=== PATIENT | male | born 1945 | race Caucasian/White ===

== ENCOUNTER 2017-07-27 19:21 | Observation (INO) | payer MEDICARE ==
[~2017-07-27] VITALS: Ht 193 cm; Wt 95.0 kg
[2017-07-27] MEDS ORDERED: ONDANSETRON HCL MDV 20ML 2 MG/ML VIAL ONE (19:28)
[2017-07-27] MEDS ORDERED: FENTANYL CITRATE PF 50 MCG/1 ML 2ML VIAL ONE ×3 (19:30→20:22)
[2017-07-27 19:43] LABS: BASOPHILS % (AUTO) 0.7 % (0.0-5.0); HEMATOCRIT 40.8 % (42-54); LYMPHOCYTES % (AUTO) 25.4 % (21.0-51.0); MEAN CORPUSCULAR HEMOGLOBIN 36.1 pg (27.0-33.0); MEAN CORPUSCULAR HGB CONC 34.4 g/dL (32.0-36.0); MEAN CORPUSCULAR VOLUME 104.9 fL (79-99); MONOCYTES % (AUTO) 6.6 % (3.0-13.0); NEUTROPHILS % (AUTO) 66.3 % (40.0-77.0); PLATELET COUNT (AUTO) 269 K/uL (130-400); RED BLOOD CELL COUNT(AUTO) 3.89 MIL/uL (4.50-6.20); RED CELL DISTRIBUTION WIDTH 13.7 % (11.0-15.5); WHITE BLOOD COUNT (AUTO) 6.7 K/uL (4.8-10.8)
[2017-07-27 20:01] LABS: CREATININE 1.2 mg/dL (0.5-1.5); POTASSIUM 3.7 mmol/L (3.5-5.1)
[2017-07-27 20:12] LABS: APPEARANCE,URINE Clear (CLEAR); BILIRUBIN,URINE Negative (NEGATIVE); COLOR,URINE Yellow (YELLOW); GLUCOSE, URINE (UA) Negative (NEGATIVE); KETONES,URINE Negative (NEGATIVE); LEUKOCYTE ESTERASE ,URINE Negative (NEGATIVE); NITRATE,URINE Negative (NEGATIVE); OCCULT BLOOD,URINE Trace (NEGATIVE); PROTEIN,URINE Negative (NEGATIVE); UROBILINOGEN,URINE 0.2 mg/dL (0.2-1.0)
[2017-07-27 20:19] LABS: BACTERIA,URINE None Seen /HPF (None Seen); SQUAMOUS EPITHELIAL CELL,UR None Seen /HPF (0-2); WBC,URINE None Seen /HPF (0-1)
[2017-07-27 20:36] LABS: ALBUMIN 4.3 g/dL (3.5-5.0); BILIRUBIN,TOTAL 0.2 mg/dL (0.2-1.0); PHENYTOIN (DILANTIN) 10.9 mcg/mL (10.0-20.0); TOTAL PROTEIN, SERUM 7.7 g/dL (6.0-8.3)
[2017-07-27] MEDS ORDERED: KETOROLAC TROMETHAMINE 15MG/ML ONE (20:37)
[2017-07-27] MEDS ORDERED: TAMSULOSIN HCL 0.4 MG CAP.ER.24H ONE (20:37)
[2017-07-27] MEDS ORDERED: SODIUM CHLORIDE 0.9% 1000ML 1,000 ML IV ONE (21:32)
[2017-07-27 21:47] VITALS: BP 154/92
[2017-07-27] MEDS ORDERED: POTASSIUM CHLORIDE 10% ELIXIR 20 MEQ/15 ML UDCUP PO PRN (23:00)
[2017-07-27] MEDS ORDERED: LIDOCAINE HCL-MPF 1% 2ML VIAL IVP PRN (23:00)
[2017-07-27] MEDS ORDERED: POTASSIUM CHLORIDE 20 MEQ ERTAB PO PRN (23:00)
[2017-07-27] MEDS ORDERED: POTASSIUM CHLORIDE 20MEQ/100ML 100 ML IV PRN (23:00)
[2017-07-27] MEDS ORDERED: ACETAMINOPHEN 325 MG TAB PO PRN ×2 (23:00)
[2017-07-27] MEDS ORDERED: CLONIDINE HCL 0.1 MG TABLET PO PRN (23:00)
[2017-07-27] MEDS ORDERED: MORPHINE SULFATE 2 MG/ML 1ML SYG IVP PRN (23:00)
[2017-07-28] VITALS: BP 128/67
[2017-07-28] MEDS ORDERED: HYDROMORPHONE 1 MG/1 ML AMP IVP PRN
[2017-07-28] MEDS ORDERED: KETOROLAC TROMETHAMINE 15MG/ML IV PRN (00:30)
[2017-07-28] MEDS: SODIUM CHLORIDE 0.9% 1000ML 1,000 ML IV SCH ×3 (01:50→23:00)
[2017-07-28 04:00] VITALS: BP 135/72
[2017-07-28 06:47] LABS: HEMATOCRIT 36.5 % (42-54); MEAN CORPUSCULAR HEMOGLOBIN 37.6 pg (27.0-33.0); MEAN CORPUSCULAR HGB CONC 35.6 g/dL (32.0-36.0); MEAN CORPUSCULAR VOLUME 105.7 fL (79-99); PLATELET COUNT (AUTO) 223 K/uL (130-400); RED BLOOD CELL COUNT(AUTO) 3.46 MIL/uL (4.50-6.20); RED CELL DISTRIBUTION WIDTH 13.6 % (11.0-15.5); WHITE BLOOD COUNT (AUTO) 4.7 K/uL (4.8-10.8)
[2017-07-28 07:10] LABS: CREATININE 1.1 mg/dL (0.5-1.5); POTASSIUM 4.2 mmol/L (3.5-5.1)
[2017-07-28 08:07] VITALS: BP 148/75
[2017-07-28] MEDS: FAMOTIDINE 20MG TAB 20 MG TAB PO SCH ×2 (09:00→21:00)
[2017-07-28] MEDS ORDERED: EZET10 PO (09:26)
[2017-07-28] MEDS ORDERED: OMEG1CAP83 PO (09:26)
[2017-07-28] MEDS ORDERED: METO25TA6 PO (09:26)
[2017-07-28] MEDS ORDERED: PANT40TA25 PO (09:26)
[2017-07-28] MEDS ORDERED: LUTE6TAB PO (09:26)
[2017-07-28] MEDS ORDERED: ROSU5TAB PO (09:26)
[2017-07-28] MEDS ORDERED: MULT-685 PO (09:26)
[2017-07-28] MEDS ORDERED: PHEN100C23 PO (09:26)
[2017-07-28] MEDS ORDERED: VITA1CAP PO (09:26)
[2017-07-28] MEDS ORDERED: ASPI-1197 PO (09:26)
[2017-07-28] MEDS ORDERED: MAG HYDROX/AL HYDROX/SIMETH ES 30 ML SUSP UDCUP PO PRN (09:30)
[2017-07-28] MEDS ORDERED: GUAIFENESIN-DM 200/20 MG 10 ML PO PRN (09:30)
[2017-07-28] MEDS ORDERED: HYDRALAZINE HCL 20 MG/ML VIAL IV PRN (09:30)
[2017-07-28] MEDS ORDERED: PHARMACY COMMUNICATION MISC SCH ×2 (09:30)
[2017-07-28] MEDS ORDERED: ACETAMINOPHEN 325 MG TAB PO PRN ×2 (09:30)
[2017-07-28] MEDS ORDERED: LACTULOSE 20 GM/30 ML UDCUP PO PRN (09:30)
[2017-07-28] MEDS ORDERED: NITROGLYCERIN 0.4 MG SL TAB SL PRN (09:30)
[2017-07-28] MEDS ORDERED: ONDANSETRON HCL 4 MG/2 ML VIAL IV PRN (09:30)
[2017-07-28] MEDS: TAMSULOSIN HCL 0.4 MG CAP.ER.24H PO SCH (09:50)
[2017-07-28] MEDS ORDERED: GLUCOSAMINE-CHONDROITIN PO SCH (09:52)
[2017-07-28] MEDS ORDERED: VITAMIN B COMPLEX 1 CAPSULE PO SCH (09:54)
[2017-07-28 11:12] VITALS: BP 141/67
[2017-07-28] MEDS ORDERED: IOPAMIDOL-370 100 ML VIAL IV ONE (12:52)
[2017-07-28 16:07] VITALS: BP 153/62
[2017-07-28 20:00] VITALS: BP 150/76
[2017-07-28] MEDS ORDERED: ATORVASTATIN CALCIUM 10 MG TABLET PO SCH (21:00)
[2017-07-29] VITALS: BP 130/68
[2017-07-29 04:00] VITALS: BP 128/70
[2017-07-29 06:20] LABS: HEMATOCRIT 38.5 % (42-54); MEAN CORPUSCULAR HEMOGLOBIN 36.3 pg (27.0-33.0); MEAN CORPUSCULAR HGB CONC 34.7 g/dL (32.0-36.0); MEAN CORPUSCULAR VOLUME 104.8 fL (79-99); PLATELET COUNT (AUTO) 207 K/uL (130-400); RED BLOOD CELL COUNT(AUTO) 3.67 MIL/uL (4.50-6.20); RED CELL DISTRIBUTION WIDTH 13.5 % (11.0-15.5); WHITE BLOOD COUNT (AUTO) 4.5 K/uL (4.8-10.8)
[2017-07-29 06:32] LABS: CREATININE 0.8 mg/dL (0.5-1.5); POTASSIUM 4.1 mmol/L (3.5-5.1)
[2017-07-29 07:50] VITALS: BP 139/61
[2017-07-29] MEDS ORDERED: PHENYTOIN SODIUM 100 MG ERCAP PO SCH (09:00)
[2017-07-29] MEDS ORDERED: PANTOPRAZOLE SODIUM 40 MG TABLET.DR PO SCH (09:00)
[2017-07-29] MEDS ORDERED: EZETIMIBE 10 MG TAB PO SCH (09:00)
[2017-07-29] MEDS ORDERED: METOPROLOL TARTRATE 25 MG TAB PO SCH (09:00)
[2017-07-29 09:12] VITALS: BP 139/61
[2017-07-29] MEDS: TAMSULOSIN HCL 0.4 MG CAP.ER.24H PO SCH (09:20)
[2017-07-29] MEDS: FAMOTIDINE 20MG TAB 20 MG TAB PO SCH (09:20)
[2017-07-29 11:11] VITALS: BP 141/73
[2017-09-13] MEDS ORDERED: GLUC1CAP14 PO (16:22)
[2017-09-13] MEDS ORDERED: VITAMIN B12 PO (16:22)
== END 2017-07-29 14:28 | disposition home or self-care (01) ==
LOC: EDH 19:21 → EDHIP 21:04 → 3CH 22:05
PROVIDERS: ADMIT Internal Medicine; ATTEND Internal Medicine
DX: N20.2 Calculus of kidney with calculus of ureter (principal); G40.909 Epilepsy, unspecified, not intractable, without status epilepticus; E78.5 Hyperlipidemia, unspecified; I10 Essential (primary) hypertension; I25.10 Atherosclerotic heart disease of native coronary artery without angina pectoris; K22.70 Barrett's esophagus without dysplasia; K29.70 Gastritis, unspecified, without bleeding; F10.20 Alcohol dependence, uncomplicated; Z87.891 Personal history of nicotine dependence; Z95.5 Presence of coronary angioplasty implant and graft; Z98.49 Cataract extraction status, unspecified eye; Z79.82 Long term (current) use of aspirin
CPT/HCPCS: 36415 ×3; 74176; 74400; 80048 ×2; 80053; 80185; 81001; 82550; 82553; 83690; 84484; 85025; 85027 ×2; 93005; 96360; 96361 ×2; 99285; G0378 ×41; J1170; J1885; J3010 ×3; J7030; Q9967

== ENCOUNTER 2017-09-14 07:41 | Day surgery (SDC) | payer MEDICARE ==
[2017-09-13 15:34] LABS: BASOPHILS % (AUTO) 0.5 % (0.0-5.0); HEMATOCRIT 39.6 % (42-54); LYMPHOCYTES % (AUTO) 23.3 % (21.0-51.0); MEAN CORPUSCULAR HEMOGLOBIN 36.4 pg (27.0-33.0); MEAN CORPUSCULAR HGB CONC 34.5 g/dL (32.0-36.0); MEAN CORPUSCULAR VOLUME 105.2 fL (79-99); MONOCYTES % (AUTO) 8.6 % (3.0-13.0); NEUTROPHILS % (AUTO) 64.6 % (40.0-77.0); NUCLEATED RED BLOOD CELLS 0.1 % (0.0-0.19); PLATELET COUNT (AUTO) 234 K/uL (130-400); RED BLOOD CELL COUNT(AUTO) 3.76 MIL/uL (4.50-6.20); RED CELL DISTRIBUTION WIDTH 13.4 % (11.0-15.5); WHITE BLOOD COUNT (AUTO) 5.2 K/uL (4.8-10.8)
[2017-09-13 15:41] LABS: CREATININE 0.9 mg/dL (0.5-1.5); POTASSIUM 4.2 mmol/L (3.5-5.1)
[2017-09-13 16:03] VITALS: BP 134/68
[~2017-09-14] VITALS: Ht 185.4 cm; Wt 93.8 kg
[2017-09-14] VITALS (12 sets, daily range): BP systolic 130–184; BP diastolic 52–92
[2017-09-14] MEDS: CEFTRIAXONE SODIUM 1 GM IVP SCH ×2 (06:00→10:00)
[~2017-09-14 07:41] MED LIST: ASPI-1197 PO; EZET10 PO; GLUC1CAP14 PO; LUTE6TAB PO; METO25TA6 PO; MULT-685 PO; OMEG1CAP83 PO; PANT40TA25 PO; PHEN100C23 PO; ROSU5TAB PO; VITAMIN B12 PO
[2017-09-14] MEDS ORDERED: LACTATED RINGERS 1000ML 1,000 ML IV ONE (08:22)
[2017-09-14] MEDS ORDERED: ISOVUE-370 50ML VIAL IV ONE (09:22)
[2017-09-14] MEDS ORDERED: PROPOFOL 10 MG/ML 20ML VIAL IV ONE (09:43)
[2017-09-14] MEDS ORDERED: FENTANYL CITRATE PF 50 MCG/1 ML 2ML VIAL ONE (09:43)
[2017-09-14] MEDS ORDERED: MIDAZOLAM HCL 1 MG/ML 2ML VIAL ONE (10:01)
[2017-09-14] MEDS ORDERED: MORPHINE SULFATE 2 MG/ML 1ML SYG ONE (10:41)
[2017-09-14] MEDS ORDERED: PHENAZOPYRIDINE HCL 200 MG TABLET ONE (11:53)
== END 2017-09-14 12:40 | disposition home or self-care (01) ==
LOC: DAH 07:41
PROVIDERS: ATTEND Urology
DX: N13.2 Hydronephrosis with renal and ureteral calculous obstruction (principal); N40.0 Benign prostatic hyperplasia without lower urinary tract symptoms; N32.89 Other specified disorders of bladder; Z79.899 Other long term (current) drug therapy; I10 Essential (primary) hypertension; K21.9 Gastro-esophageal reflux disease without esophagitis; R56.9 Unspecified convulsions; Z95.5 Presence of coronary angioplasty implant and graft; Z98.890 Other specified postprocedural states; Z98.41 Cataract extraction status, right eye; Z98.42 Cataract extraction status, left eye; M19.90 Unspecified osteoarthritis, unspecified site
CPT/HCPCS: 36415; 52005; 74420; 80048; 85025; 93005; A4218; A4344; A4358; A4510; A4600; C1758; C1769; J0696; J2250; J2704; J3010; J7120 ×2; Q9967

== ENCOUNTER 2022-04-12 16:05 | Emergency (ER) | payer MEDICARE ==
[~2022-04-12] VITALS: Ht 193 cm; Wt 94.3 kg
[~2022-04-12 16:05] MED LIST changes: -EZET10 PO; +EZET10TA13 PO; -PANT40TA25 PO; +PANT40TA55 PO
[2022-04-12 16:22] VITALS: BP 122/62
[2022-04-12 16:48] LABS: BASOPHILS % (AUTO) 0.7 % (0.0-5.0); EOSINOPHILS % (AUTO) 0.7 % (0.0-8.0); HEMATOCRIT 38.7 % (42-54); LYMPHOCYTES % (AUTO) 11.6 % (21.0-51.0); MEAN CORPUSCULAR HEMOGLOBIN 35.2 pg (27.0-33.0); MEAN CORPUSCULAR HGB CONC 33.9 g/dL (32.0-36.0); MONOCYTES % (AUTO) 11.9 % (3.0-13.0); NEUTROPHILS % (AUTO) 74.8 % (40.0-77.0); PLATELET COUNT (AUTO) 162 K/uL (130-400); RED BLOOD CELL COUNT(AUTO) 3.72 MIL/uL (4.50-6.20); RED CELL DISTRIBUTION WIDTH 12.7 % (11.0-15.5); WHITE BLOOD COUNT (AUTO) 7.2 K/uL (4.8-10.8)
[2022-04-12 16:57] LABS: CREATININE 1.1 mg/dL (0.5-1.5); POTASSIUM 3.6 mmol/L (3.5-5.1)
[2022-04-12 17:04] LABS: MAGNESIUM 2.1 mg/dL (1.80-2.40); TOTAL PROTEIN, SERUM 7.2 g/dL (6.0-8.3)
[2022-04-12] MEDS ORDERED: NIRM1TAB5 PO (18:05)
== END 2022-04-12 18:27 | disposition home or self-care (01) ==
LOC: EDH 16:05
DX: U07.1 COVID-19 (principal); I10 Essential (primary) hypertension; Z79.899 Other long term (current) drug therapy; Z88.8 Allergy status to other drugs, medicaments and biological substances; Z79.82 Long term (current) use of aspirin
CPT/HCPCS: 99285; 71045; 87635; 83735; 84484; 80053; 83880; 85025; 87804 ×2; 36415; 93005; C9803

== ENCOUNTER 2023-09-30 07:06 | Observation (INO) | payer MEDICARE ==
[2023-09-30] VITALS (11 sets, daily range): BP systolic 127–153; BP diastolic 66–82; PULSE 75–94; RESP 18–20; O2SAT 93–96
[~2023-09-30] VITALS: Ht 193 cm; Wt 90.7 kg
[~2023-09-30 07:06] MED LIST changes: -EZET10TA13 PO; +EZET10TA81 PO; +NIRM1TAB5 PO
[2023-09-30 07:43] LABS: BASOPHILS # (AUTO) 0.02 K/uL (0.00-0.20); BASOPHILS % (AUTO) 0.3 % (0.0-5.0); EOSINOPHILS # (AUTO) 0.01 K/uL (0.00-0.70); EOSINOPHILS % (AUTO) 0.1 % (0.0-8.0); IMMATURE GRANULOCYTE ABSOLUTE 0.03 K/uL (0-1); LYMPHOCYTES # (AUTO) 0.7 K/uL (1.0-4.8); LYMPHOCYTES % (AUTO) 9.4 % (21.0-51.0); MEAN CORPUSCULAR HEMOGLOBIN 35.6 pg (27.0-33.0); MEAN CORPUSCULAR HGB CONC 34.3 g/dL (32.0-36.0); MEAN CORPUSCULAR VOLUME 103.8 fL (79-99); MONOCYTES # (AUTO) 0.6 K/uL (0.1-1.0); MONOCYTES % (AUTO) 7.1 % (3.0-13.0); NEUTROPHILS # (AUTO) 6.5 K/uL (1.8-7.7); NEUTROPHILS % (AUTO) 82.7 % (40.0-77.0); PLATELET COUNT (AUTO) 326 K/uL (130-400); RED BLOOD CELL COUNT(AUTO) 4.24 MIL/uL (4.50-6.20); RED CELL DISTRIBUTION WIDTH 12.2 % (11.0-15.5); WHITE BLOOD COUNT (AUTO) 7.8 K/uL (4.8-10.8)
[2023-09-30 07:44] LABS: INFLUENZA TYPE A Negative For Type A (NEGATIVE); INFLUENZA TYPE B Negative For Type B (NEGATIVE)
[2023-09-30 07:47] LABS: CREATININE 0.9 mg/dL (0.5-1.3); POTASSIUM 4.1 mmol/L (3.5-5.1)
[2023-09-30 08:02] LABS: SARS-CoV-2, RNA, NAAT NEGATIVE SARS CoV-2 (NEGATIVE)
[2023-09-30 08:42] LABS: B-TYPE NATRIURETIC PEPTIDE 9 pg/mL (0-100)
[2023-09-30] MEDS: SOLU-MEDROL 125MG VIAL IVP ONE (08:54)
[2023-09-30] MEDS: AZITHROMYCIN 500MG+NS 250ML 250 ML IVPB STA (08:54)
[2023-09-30] MEDS: CEFTRIAXONE 1G VIAL IVPB ONE (08:55)
[2023-09-30] MEDS: IPRATROPIUM/ALBUTEROL SULFATE 3 ML SOLUTION IH ONE (09:00)
[2023-09-30 09:18] LABS: ABG BASE EXCESS -0.1 mmol/L (-2.0-3.0); ABG HCO3 21.2 mmol/L (21.0-28.0); ABG OXYGEN SATURATION 93.8 % (95.0-99.0); ABG PCO2 27 mmHg (35-48); ABG PH 7.517 (7.35-7.450); CARBON MONOXIDE 0.6; HHb 6.2; PO2, ARTERIAL BG 64.3 mmHg (83.0-108.0); VENT MODE, BG RA (ROOM AIR)
[2023-09-30 09:28] LABS: APPEARANCE,URINE CLEAR (CLEAR); BILIRUBIN,URINE NEGATIVE (NEGATIVE); COLOR,URINE YELLOW (YELLOW); GLUCOSE, URINE (UA) NEGATIVE (NEGATIVE); KETONES,URINE NEGATIVE (NEGATIVE); LEUKOCYTE ESTERASE ,URINE NEGATIVE Leu/uL (NEGATIVE); NITRATE,URINE NEGATIVE (NEGATIVE); OCCULT BLOOD,URINE NEGATIVE (NEGATIVE); PH,URINE 6.5 (5.0-8.0); PROTEIN,URINE NEGATIVE (NEGATIVE); UROBILINOGEN,URINE 0.2 mg/dL (0.2-1.0)
[2023-09-30] MEDS: IPRATROPIUM 0.5 MG/2.5 ML INH IH SCH (09:28)
[2023-09-30 09:30] LABS: MUCUS,URINE RARE LPF (None Seen); RBC,URINE 0-1 /HPF (0-1); WBC,URINE 0-1 /HPF (0-1)
[2023-09-30] MEDS ORDERED: DIPHENHYDRAMINE HCL 25 MG CAPSULE PO PRN (09:30)
[2023-09-30] MEDS ORDERED: BENZOCAINE/MENTH/CETYLPYRD CL 1 EACH LOZENGE MM PRN (09:30)
[2023-09-30] MEDS ORDERED: ALBUTEROL 0.083% 2.5 MG/3 ML INH IH PRN (09:30)
[2023-09-30] MEDS ORDERED: NITROGLYCERIN 0.4 MG SL TAB SL PRN (09:30)
[2023-09-30] MEDS ORDERED: GUAIFENESIN SUGAR-FREE 100 MG/5 ML UDCUP PO PRN (09:30)
[2023-09-30] MEDS ORDERED: DOCUSATE SODIUM 100 MG CAP PO PRN (09:30)
[2023-09-30] MEDS ORDERED: HYDRALAZINE 25MG TABLET PO PRN (09:30)
[2023-09-30] MEDS ORDERED: POLYETHYLENE GLYCOL 3350 17 GM POWD.PACK PO PRN (09:30)
[2023-09-30] MEDS ORDERED: LACTULOSE 20 GM/30 ML UDCUP PO PRN (09:30)
[2023-09-30] MEDS ORDERED: ZOLPIDEM TARTRATE 5 MG TAB PO PRN (09:30)
[2023-09-30] MEDS ORDERED: ONDANSETRON 4MG INJ IV PRN (09:30)
[2023-09-30] MEDS ORDERED: DiphenhydrAMINE HCL 50 MG/ML VIAL IV PRN (09:30)
[2023-09-30] MEDS ORDERED: ACETAMINOPHEN 325 MG TAB PO PRN ×2 (09:30)
[2023-09-30] MEDS ORDERED: GUAIFENESIN-DM 200/20 MG 10 ML PO PRN (09:30)
[2023-09-30] MEDS: INSULIN HUMULIN R 100 UNIT/ML 3ML SQ SCH (11:27)
[2023-09-30] MEDS: CEFTRIAXONE 2GM VIAL IVPB SCH (17:21)
[2023-09-30] MEDS: BUDESONIDE 0.5 MG/2 ML INH IH SCH (18:08)
[2023-09-30] MEDS: ACETYLCYSTEINE 10% 100MG/ML 4ML VIAL IH SCH (18:08)
[2023-09-30] MEDS: FAMOTIDINE 20MG VIAL IV SCH (20:23)
[2023-10-01] MEDS ORDERED: LOSA25TA41 PO (01:09)
[2023-10-01] MEDS ORDERED: TAMS-1 PO (01:09)
[2023-10-01 01:36] VITALS: PULSE 74; RESP 18
[2023-10-01 04:00] VITALS: BP 132/80; PULSE 81; RESP 19
[2023-10-01 04:24] LABS: BASOPHILS # (AUTO) 0.01 K/uL (0.00-0.20); BASOPHILS % (AUTO) 0.1 % (0.0-5.0); EOSINOPHILS # (AUTO) 0.01 K/uL (0.00-0.70); EOSINOPHILS % (AUTO) 0.1 % (0.0-8.0); HEMATOCRIT 37.5 % (42-54); IMMATURE GRANULOCYTE ABSOLUTE 0.03 K/uL (0-1); LYMPHOCYTES % (AUTO) 12.8 % (21.0-51.0); MEAN CORPUSCULAR HEMOGLOBIN 34.9 pg (27.0-33.0); MEAN CORPUSCULAR HGB CONC 34.7 g/dL (32.0-36.0); MEAN CORPUSCULAR VOLUME 100.8 fL (79-99); MONOCYTES # (AUTO) 0.7 K/uL (0.1-1.0); MONOCYTES % (AUTO) 8.3 % (3.0-13.0); NEUTROPHILS # (AUTO) 6.3 K/uL (1.8-7.7); NEUTROPHILS % (AUTO) 78.3 % (40.0-77.0); PLATELET COUNT (AUTO) 331 K/uL (130-400); RED BLOOD CELL COUNT(AUTO) 3.72 MIL/uL (4.50-6.20); RED CELL DISTRIBUTION WIDTH 12.2 % (11.0-15.5); WHITE BLOOD COUNT (AUTO) 8.1 K/uL (4.8-10.8)
[2023-10-01 04:34] LABS: CREATININE 0.9 mg/dL (0.5-1.3); MAGNESIUM 2.1 mg/dL (1.80-2.40); POTASSIUM 3.8 mmol/L (3.5-5.1)
[2023-10-01 04:54] LABS: B-TYPE NATRIURETIC PEPTIDE 29 pg/mL (0-100)
[2023-10-01 07:09] VITALS: PULSE 84; RESP 18; O2SAT 97
[2023-10-01 08:00] VITALS: BP 164/80; PULSE 78; RESP 20; O2SAT 95
[2023-10-01] MEDS: AZITHROMYCIN 500MG+NS 250ML 250 ML IVPB SCH (08:45)
[2023-10-01] MEDS: ENOXAPARIN SODIUM 40 MG/0.4 ML SYRINGE SQ SCH (08:51)
[2023-10-01] MEDS ORDERED: DOXY100C5 PO (09:01)
[2023-10-01] MEDS ORDERED: ALBU0.63 IH (09:01)
[2023-10-01] MEDS ORDERED: AMOX1TAB16 PO (09:01)
[2023-10-01] MEDS ORDERED: PANT40TA55 PO (09:01)
[2023-10-01] MEDS ORDERED: PRED20TA3 PO (09:01)
[2023-10-01 10:22] VITALS: PULSE 105; PULSE 121; RESP 20; RESP 22; O2SAT 94; O2SAT 97
[2023-10-01] MEDS: PREDNISONE 20 MG TABLET PO SCH (10:22)
[2023-10-01 12:00] VITALS: BP 149/76; PULSE 82; RESP 18
== END 2023-10-01 12:45 | disposition home or self-care (01) ==
LOC: EDH 07:06 → INTOOBSV 09:01 → EDHIP 09:01 → 3CH 12:00
PROVIDERS: ADMIT Internal Medicine Critical Care Medicine; ATTEND Internal Medicine Critical Care Medicine
DX: J18.9 Pneumonia, unspecified organism (principal); Z20.822 Contact with and (suspected) exposure to COVID-19; E87.3 Alkalosis; S80.11XA Contusion of right lower leg, initial encounter; I11.0 Hypertensive heart disease with heart failure; I50.9 Heart failure, unspecified; F10.20 Alcohol dependence, uncomplicated; E78.5 Hyperlipidemia, unspecified; R06.4 Hyperventilation; R60.0 Localized edema; I25.810 Atherosclerosis of coronary artery bypass graft(s) without angina pectoris; F17.210 Nicotine dependence, cigarettes, uncomplicated; Z95.5 Presence of coronary angioplasty implant and graft; Z79.82 Long term (current) use of aspirin; X58.XXXA Exposure to other specified factors, initial encounter; Y93.89 Activity, other specified; Y92.89 Other specified places as the place of occurrence of the external cause; Y99.8 Other external cause status; Y90.9 Presence of alcohol in blood, level not specified
CPT/HCPCS: 96365; 96366 ×2; 96375; 96368; 82435; 82947; 84484; 84132; 84295; 80048 ×2; 82803; 83880 ×2; 85025 ×2; 85378; 85018; 87804 ×2; 82948; 83605; 87449; 81001; 36415 ×2; 87635; 71045 ×2; 93970; 99291; 93005; 36600; 94640; 87641; 96376; 83735; 87071; 87205; 97161; 97116; 94760; G0378 ×21; J3490 ×2; J2919; J0696 ×2; J0456 ×2; J7608 ×4; 94664; J1650